=== PATIENT | male | born 2000 | race African-American/Black ===

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

== ENCOUNTER 2021-05-15 22:28 | Emergency (ER) | payer OTHER | END 2021-05-16 00:53 | disposition left against medical advice (07) | LOC: ERS 22:28 | DX: Z53.21 Procedure and treatment not carried out due to patient leaving prior to being seen by health care provider (principal) ==